=== PATIENT | male | born 1955 | race Caucasian/White ===

== ENCOUNTER 2016-09-21 15:03 | Emergency (ER) | payer OTHER ==
[2016-09-21] MEDS ORDERED: ASPIRIN 81 MG CHEW TAB ONE (15:18)
[2016-09-21] MEDS ORDERED: NITROGLYCERIN SL 0.4 MG TAB SL ONE (15:18)
[2016-09-21] MEDS ORDERED: SODIUM CHLORIDE 0.9% 1,000 ML ONE (15:43)
== END 2016-09-21 19:22 | disposition home or self-care (01) ==
LOC: ER 15:03
DX: R07.2 Precordial pain (principal); I10 Essential (primary) hypertension
CPT/HCPCS: 36415; 71010; 80053; 82550; 83735; 84484; 85025; 85379; 85610; 85730; 93005; 96360; 96361